=== PATIENT | female | born 1950 | race Two or more races ===

== ENCOUNTER → 2016-07-21 | Outpatient (CLI) | payer OTHER, MEDICAID ==
--- NOTE | 2016-07-21 10:47 | MA ---
Diagnostic Digital Mammogram bilateral Breast with additional views left breast Clinical Indications: Palpable nodule periareolar location left breast. The patient is due for bilate ral mammogram. Technique: Routine CC and mediolateral oblique views were obtained of each breast. Compression was ob tained in CC, mediolateral oblique, and 90-degree lateral views of the left breast. This examination is processed by the [facility] computer-aided detection system. Comparison: July 25, 2009; August 02, 2008 Breast density: C; The breasts are heterogeneously dense, which may obscure small masses. Findings: CAD was reviewed. There is some denser tissue in the retroareolar location of left breast. The distribution is similar to the prior studies. There are no new dominant masses, abnormal clusters of microcalcifications, or significant axillary lymphadenopathy. Vascular calcifications have increased.. Impression: Benign findings. BI-RADS 2. However, with palpable abnormality periareolar location of the left breast, subsequent ultrasound was performed for further characterization.
--- NOTE | 2016-07-21 10:56 | US ---
Ultrasound left breast History: Palpable lump superior periareolar location left breast. Findings: Comparison prior ultrasound study from July 25, 2009 and mammogram performed earlier tod ay. At the 12:00 periareolar location of the left breast there is denser breast parenchymal tissue that e xtends superficially that accounts for the palpable nodularity. There are 2 tiny 2 mm cysts within th is denser tissue as well. No significant solid or dominant cystic mass is identified. Impression: Benign findings ultrasound 12:00 periareolar location corresponding with area palpable co ncern. BI-RADS 2 Routine annual mammographic followup recommended. The results of this study were reviewed with the patient. Clinical followup is recommended on all palpable nodules. Despite negative or benign imaging, if the palpable abnormality increases in size, additional imaging followup may be necessary or possibly devante gical consultation.
== END ==
LOC: BRMIMAGING 09:58
PROVIDERS: ATTEND Internal Medicine
DX: N63 Unspecified lump in breast (principal)
CPT/HCPCS: 76641; G0204

== ENCOUNTER → 2017-01-23 | Outpatient (CLI) | payer OTHER, MEDICAID | LOC: FIMAGING 11:49 | PROVIDERS: ATTEND Orthopaedic Surgery | DX: S83.241A Other tear of medial meniscus, current injury, right knee, initial encounter (principal); M22.41 Chondromalacia patellae, right knee ==

== ENCOUNTER → 2017-01-26 | Outpatient (CLI) | payer OTHER, MEDICAID | LOC: FIMAGING 14:12 | PROVIDERS: ATTEND Orthopaedic Surgery | DX: M75.81 Other shoulder lesions, right shoulder (principal); M75.21 Bicipital tendinitis, right shoulder ==

== ENCOUNTER → 2017-08-21 | Outpatient (CLI) | payer OTHER, MEDICAID | LOC: BRMIMAGING 13:23 | PROVIDERS: ATTEND Internal Medicine | DX: Z12.31 Encounter for screening mammogram for malignant neoplasm of breast (principal) ==